=== PATIENT | male | born 1980 | race Caucasian/White ===

== ENCOUNTER 2018-02-03 20:07 | Emergency (ER) | payer MEDICARE ==
[~2018-02-03] VITALS: Ht 175.3 cm; Wt 97.7 kg
[2018-02-03 20:12] VITALS: Ht 175.3 cm; Wt 97.7 kg
[2018-02-03] MEDS ORDERED: TRAZODONE HCL150 MG PO (20:13)
[2018-02-03] MEDS ORDERED: PROZAC20 MG PO (20:13)
[2018-02-03 20:30] LABS: BASOPHILS 0.3 % (0-2); EOSINOPHILS 3.5 % (0-7); HEMATOCRIT 44.4 % (42.0-54.0); HEMOGLOBIN 15.5 g/dL (13.5-17.5); IMMATURE GRANULOCYTES 0.3 % (0-5); LYMPHOCYTES 25.9 % (15-50); MCH 30.9 pg (26.0-34.0); MCHC 34.9 g/dL (31.0-37.0); MCV 88.4 fL (80.0-100.0); MEAN PLATELET VOLUME 9.1 fL (7.4-10.4); MONOCYTES 10.7 % (2-11); NEUTROPHILS 59.3 % (40-80); PLATELET COUNT 208 10x3/uL (130-400); RBC 5.02 10x6/uL (4.20-6.10); RDW 12.3 % (11.5-14.5); WBC 14.2 10x3/uL (4.8-10.8)
[2018-02-03 20:43] LABS: APPEARANCE CLEAR (CLEAR); BILIRUBIN NEGATIVE (NEGATIVE); COLOR DK YELLOW (YELLOW); GLUCOSE NEGATIVE (NEGATIVE); KETONE MODERATE mg/dL (NEGATIVE); NITRITE NEGATIVE (NEGATIVE); PROTEIN 1+ mg/dL (NEGATIVE); UROBILINOGEN NORMAL (NORMAL)
[2018-02-03 20:45] LABS: WHITE CELLS - URINE 0-5 /hpf (0-5)
[2018-02-03 20:46] LABS: BACTERIA FEW /hpf (NONE SEEN); MUCUS >1+ /lpf (NONE SEEN); RED CELLS - URINE 0-5 /hpf (0-5)
[2018-02-03 20:49] LABS: ALBUMIN 4.5 g/dL (3.4-5.0); ANION GAP 13.8 mmol/L (8-16); BILIRUBIN - TOTAL 0.53 mg/dL (0.2-1.3); CALCIUM 9.2 mg/dL (8.5-10.1); CARBON DIOXIDE 25.1 mmol/L (21.0-32.0); CREATININE - SERUM 1.3 mg/dL (0.6-1.3); POTASSIUM - SERUM 3.9 mmol/L (3.5-5.1)
[2018-02-03 20:51] LABS: UDS - AMPHET POSITIVE QUAL (NEGATIVE); UDS - BARB NEGATIVE QUAL (NEGATIVE); UDS - BENZO NEGATIVE QUAL (NEGATIVE); UDS - COCAINE NEGATIVE QUAL (NEGATIVE); UDS - OPIATE NEGATIVE QUAL (NEGATIVE); UDS - PCP NEGATIVE QUAL (NEGATIVE); UDS - THC POSITIVE QUAL (NEGATIVE)
[2018-02-04 01:34] VITALS: BP 122/71
== END 2018-02-04 01:36 ==
LOC: D.ER 20:07
PROVIDERS: Emergency Medicine
DX: F20.9 Schizophrenia, unspecified (principal); R44.0 Auditory hallucinations; F17.200 Nicotine dependence, unspecified, uncomplicated